=== PATIENT | female | born 1985 | race Caucasian/White ===

== ENCOUNTER 2017-03-29 13:56 | Emergency (ER) | payer OTHER ==
[~2017-03-29] VITALS: Ht 165.1 cm; Wt 64.9 kg
[2017-03-29 14:07] VITALS: BP 157/93
--- NOTE | 2017-03-29 14:27 | PHYS DOC ---
Past History Past Medical History: No Pertinent History Past Surgical History: , Tubal ligation Alcohol Use: None Drug Use: Marijuana Adult General Chief Complaint Chief Complaint: Neck Pain HPI HPI This 32-year-old lady presents with back and upper thoracic pain.. She was seen at [facility] on the as well as a for her pain. That I think she had a CAT scan of the neck that was essentially unremarkable She was placed on Flexeril as well as Naprosyn but continues to have the pain.She has not followed up with anyone but just keeps coming to the emergency departments She denies numbness tingling Review of Systems Review of Systems Constitutional: Denies fever or chills [] Eyes: Denies change in visual acuity, redness, or eye pain [] HENT: Denies nasal congestion or sore throat [] Respiratory: Denies cough or shortness of breath [] Cardiovascular: No additional information not addressed in HPI [] GI: Denies abdominal pain, nausea, vomiting, bloody stools or diarrhea [] : Denies dysuria or hematuria [] Musculoskeletal: Patient is tender to palpation of the paravertebral musculature in the cervical area. Integument: Denies rash or skin lesions [] Neurologic: Denies headache, focal weakness or sensory changes [] Endocrine: Denies polyuria or polydipsia [] Allergies Allergies Allergies Coded Allergies Type Severity Reaction Last Updated Verified No Known Drug Allergies 03/29/17 No Physical Exam Physical Exam Constitutional: Well developed, well nourished, no acute distress, non-toxic appearance. [] HENT: Normocephalic, atraumatic, bilateral external ears normal, oropharynx moist, no oral exudates, nose normal. [] Eyes: PERRLA, EOMI, conjunctiva normal, no discharge. [] Neck: Normal range of motion, no tenderness, supple, no stridor. [] Cardiovascular:Heart rate regular rhythm, no murmur [] Lungs & Thorax: Bilateral breath sounds clear to auscultation [] Abdomen: Bowel sounds normal, soft, no tenderness, no masses, no pulsatile masses. [] Skin: Warm, dry, no erythema, no rash. [] Back: No tenderness, no CVA tenderness. [] Extremities: No tenderness, no cyanosis, no clubbing, ROM intact, no edema. [] Neurologic: Alert and oriented X 3, normal motor function, normal sensory function, no focal deficits noted. [] Psychologic: Affect normal, judgement normal, mood normal. [] Current Patient Data Vital Signs Vital Signs Date Time Temp Pulse Resp B/P (MAP) Pulse Ox O2 Delivery O2 Flow Rate FiO2 03/29/17 14:07 98.3 105 18 99 Room Air EKG EKG [] Radiology/Procedures Radiology/Procedures [] Impressions: Cervical strain cervical pain possible cervical disc disease disease Course & Med Decision Making Course & Med Decision Making Pertinent Labs and Imaging studies reviewed. (See chart for details) was explained to the patient that emergency department at the place for follow-up and that she needed to find a primary care doctor to follow-up with was also explained that the next step would be possibly do an MRI of her neck but I did not feel it was necessary at this time. She was instructed to massage rest and she will be given a small prescription for hydrocodone/APAP [] Dragon Disclaimer Dragon Disclaimer This chart was dictated in whole or in part using Voice Recognition software in a busy, high-work load, and often noisy Emergency Department environment. It may contain unintended and wholly unrecognized errors or omissions. Departure Departure: Referrals: PCP,NO (PCP) SILVINO GEORGE MD March 29, 2017 14:27
[2017-03-29] MEDS ORDERED: HYDR-2758 PO (14:40)
[2017-03-29] MEDS ORDERED: HYDROcodone/APAP 5/325MG 1 TAB TABLET PO ONE (15:00)
== END 2017-03-29 14:54 | disposition home or self-care (01) ==
LOC: ER 13:56
DX: S16.1XXA Strain of muscle, fascia and tendon at neck level, initial encounter (principal); F12.10 Cannabis abuse, uncomplicated; X58.XXXA Exposure to other specified factors, initial encounter; Y93.89 Activity, other specified; Y99.8 Other external cause status; Y92.89 Other specified places as the place of occurrence of the external cause
CPT/HCPCS: 99283

== ENCOUNTER 2017-03-31 17:02 | Emergency (ER) | payer OTHER ==
[~2017-03-31] VITALS: Ht 3 cm; Wt 64.9 kg
[~2017-03-31 17:02] MED LIST: HYDR-2758 PO
--- NOTE | 2017-03-31 17:29 | PHYS DOC ---
Past History Past Medical History: No Pertinent History Past Surgical History: , Tubal ligation Alcohol Use: None Drug Use: None Adult General Chief Complaint Chief Complaint: Neck Pain HPI HPI Patient is a 32 year old female who presents with neck pain that has been present for the past 4-5 days. Patient states she was wrestling the front and injured her left neck and shoulder. Patient was seen at an [facility] where she had a CT scan of the head and neck that was unremarkable. Patient states she was diagnosed with a trapezius muscle tear. Patient was seen at [facility] 2 days ago for the same symptoms. Patient returns today with persistent symptoms of neck pain on the left side and difficulty return her head to the left. Patient describes some burning sensation down her left side of the neck and her left upper shoulder. Patient denies any other injuries. Patient was prescribed narcotic pain medication and muscle relaxers for his symptoms. Patient denies any fevers and has no signs or symptoms of infection. Pertinent exam findings: Positive tender to palpation left cervical paraspinous muscles, radiculopathy reproduced with axial traction is applied to the top of the head with the head turned to the left shoulder ED course: Patient was seen on arrival, since the patient had a CT scan done [address] [facility] we will obtain a UDS, a BMP and treat with Valium and Toradol. 1801: Discussed lab results the patient and recommended she follow up with her PCP for potential MRI of her neck. Pertinent findings: No electrolyte abnormalities MDM: After reviewing the chart, CC/HPI/PMH, physical exam, lab results, I do not believe the patient has a severe bacterial infection like meningitis or to further workup and admission at this time. I believe the patient's neck pain is consistent with her previous diagnosis of a severe muscle strain to her left neck after wrestling 3-4 days ago. There are no red flags on her physical exam findings that would warrant an emergent MRI at this time. The patient is stable for discharge. Patient has pain medication must watch as a home we'll add on steroids. Additional verbal discharge instructions were provided to the patient and that if symptoms get worse or any new symptoms arise that are worrisome to the patient she is to return to the emergency room immediately. Review of Systems Review of Systems Constitutional: Denies fever or chills [] Eyes: Denies change in visual acuity, redness, or eye pain [] HENT: Denies nasal congestion or sore throat [] Respiratory: Denies cough or shortness of breath [] Cardiovascular: No additional information not addressed in HPI [] GI: Denies abdominal pain, nausea, vomiting, bloody stools or diarrhea [] : Denies dysuria or hematuria [] Musculoskeletal: Left neck pain Integument: Denies rash or skin lesions [] Neurologic: Denies headache, focal weakness or sensory changes [] Endocrine: Denies polyuria or polydipsia [] Current Medications Current Medications Current Medications Medications (Trade) Dose Ordered Sig/Royer Start Time Stop Time Status Last Admin Dose Admin Diazepam (Valium) 5 mg 1X ONCE 03/31/17 17:30 03/31/17 17:31 UNV Ketorolac Tromethamine (Toradol) 60 mg 1X ONCE 03/31/17 17:30 03/31/17 17:31 UNV Allergies Allergies Allergies Coded Allergies Type Severity Reaction Last Updated Verified No Known Drug Allergies 03/29/17 No Physical Exam Physical Exam Constitutional: Well developed, well nourished, no acute distress, non-toxic appearance. [] HENT: Normocephalic, atraumatic, bilateral external ears normal, oropharynx moist, no oral exudates, nose normal. [] Eyes: PERRLA, EOMI, conjunctiva normal, no discharge. [] Neck: Decreased range of motion to the left, positive tender to palpation left cervical spine paraspinal muscles Cardiovascular:Heart rate regular rhythm, no murmur [] Lungs & Thorax: Bilateral breath sounds clear to auscultation [] Abdomen: Bowel sounds normal, soft, no tenderness, no masses, no pulsatile masses. [] Skin: Warm, dry, no erythema, no rash. [] Back: No tenderness, no CVA tenderness. [] Extremities: No tenderness, no cyanosis, no clubbing, ROM intact, no edema. [] Neurologic: Alert and oriented X 3, reproducible paresthesias down the left upper 70 with axial load on the head with turning it to the left Psychologic: Affect normal, judgement normal, mood normal. [] Current Patient Data Vital Signs Vital Signs Date Time Temp Pulse Resp B/P (MAP) Pulse Ox O2 Delivery O2 Flow Rate FiO2 03/31/17 17:16 97.9 99 EKG EKG [] Radiology/Procedures Radiology/Procedures [] Course & Med Decision Making Course & Med Decision Making Pertinent Labs and Imaging studies reviewed. (See chart for details) [] Dragon Disclaimer Dragon Disclaimer This chart was dictated in whole or in part using Voice Recognition software in a busy, high-work load, and often noisy Emergency Department environment. It may contain unintended and wholly unrecognized errors or omissions. Departure Departure: Impression: Primary Impression: Neck muscle strain Disposition: HOME, SELF-CARE Condition: IMPROVED Referrals: PCP,NO (PCP) Patient Instructions: Soft Tissue Injury of the Neck, [id number] Scripts Ibuprofen (IBUPROFEN) 800 Mg Tablet 1 TAB PO TID for 10 Days, #30 TAB 1 Refill Prov: MANNY HECTOR DO 03/31/17 Methylprednisolone (MEDROL) 4 Mg Tab.ds.pk 1 PKG PO UD, #1 PKG Prov: MANNY HECTOR DO 03/31/17 Problem Qualifiers Primary Impression: Neck muscle strain Encounter type: initial encounter Qualified Codes: S16.1XXA - Strain of muscle, fascia and tendon at neck level, initial encounter MANNY HECTOR DO March 31, 2017 17:29
[2017-03-31] MEDS ORDERED: KETOROLAC 60 MG/2 ML VIAL. IM ONE (17:45)
[2017-03-31] MEDS ORDERED: diazePAM 5 MG TABLET PO ONE (17:45)
[2017-03-31 17:46] LABS: CALCIUM 9.3 mg/dL (8.5-10.1); CREATININE 0.7 mg/dL (0.6-1.0); GFR 98.3; POTASSIUM 3.4 mmol/L (3.5-5.1)
[2017-03-31] MEDS ORDERED: METH4TAB2 PO (18:16)
[2017-03-31] MEDS ORDERED: IBUP800T19 PO (18:16)
[2017-03-31 18:28] VITALS: BP 145/62
== END 2017-03-31 18:15 | disposition home or self-care (01) ==
LOC: ER 17:02
DX: S16.1XXA Strain of muscle, fascia and tendon at neck level, initial encounter (principal); X58.XXXA Exposure to other specified factors, initial encounter; Y93.89 Activity, other specified; Y92.89 Other specified places as the place of occurrence of the external cause; Y99.8 Other external cause status
CPT/HCPCS: 36415; 80048; 96372; 99283; J1885

== ENCOUNTER 2017-04-01 04:28 | Emergency (ER) | payer OTHER ==
[~2017-04-01] VITALS: Ht 165.1 cm; Wt 64.9 kg
[~2017-04-01 04:28] MED LIST changes: +IBUP800T19 PO; +METH4TAB2 PO
--- NOTE | 2017-04-01 04:38 | ED.ADGEN ---
Past History Past Medical History: No Pertinent History Past Surgical History: , Tubal ligation Alcohol Use: None Drug Use: None Adult General Chief Complaint Chief Complaint Right-sided weakness HPI HPI Patient is a 32 year old female who presents with right sided weakness. She states that 4-5 days ago she was wrestling with her friend in the front yard in the next day she woke up with neck stiffness like she had pulled a muscle. She was able to walk around fine had full sensation was able to mow the yard. She started having left-sided neck pain and was seen by emergency department at [facility] and had a CT scan of her neck was diagnosed with a trapezius tear. She presented yesterday here complaining about pain and numbness in her left side of her neck. She was sent home with Medrol Dosepak and pain meds. She did not get these filled she said she went home to her mom's house at 6 PM last night fell asleep and this morning could not move her right side. She states that the last time she was able to move her right side was when she went to bed at 7 pm. She states she is on no medicines that she didn' t have a chance anything filled. She states that she has some numbness also on her right side but more that she cannot move it. She denies any fevers chills, she denies any other trauma. She did still has her c-collar in place via EMS. She states that she was having some weakness earlier which is now gotten much worse after she got home and fell asleep at her mom's house. Review of Systems Review of Systems Constitutional: Denies fever or chills [] Eyes: Denies change in visual acuity, redness, or eye pain [] HENT: Denies nasal congestion or sore throat [] Respiratory: Denies cough or shortness of breath [] Cardiovascular: No additional information not addressed in HPI [] GI: Denies abdominal pain, nausea, vomiting, bloody stools or diarrhea [] : Denies dysuria or hematuria [] Musculoskeletal: Denies back pain or joint pain [] Integument: Denies rash or skin lesions [] Neurologic: Denies headache, positive for weakness right side and decreased sensation Endocrine: Denies polyuria or polydipsia [] Current Medications Current Medications Current Medications Medications (Trade) Dose Ordered Sig/Royer Start Time Stop Time Status Last Admin Dose Admin Lorazepam (Ativan) 0.5 mg 1X ONCE 04/01/17 09:45 04/01/17 09:46 DC 04/01/17 09:45 0.5 MG Allergies Allergies Allergies Coded Allergies Type Severity Reaction Last Updated Verified No Known Drug Allergies 03/29/17 No Physical Exam Physical Exam Constitutional: Well developed, well nourished, no acute distress, non-toxic appearance. [] HENT: Normocephalic, atraumatic, bilateral external ears normal, oropharynx moist, no oral exudates, nose normal. [] Eyes: PERRLA, EOMI, conjunctiva normal, no discharge. [] Neck: Normal range of motion, no tenderness, supple, no stridor. [] Cardiovascular:Heart rate regular rhythm, no murmur [] Lungs & Thorax: Bilateral breath sounds clear to auscultation [] Abdomen: Bowel sounds normal, soft, no tenderness, no masses, no pulsatile masses. [] Skin: Warm, dry, no erythema, no rash. [] Back: No tenderness, no CVA tenderness. [] Extremities: No tenderness, no cyanosis, no clubbing, ROM intact, no edema. [] Neurologic: Alert and oriented X 3, 1 out of 5 strength in the right upper and lower extremity, she is able to flex and extend fingers, minimal movement of wrist, no movement of elbow on the right upper extremities, right lower extremities able to flex the hip and wiggle toes minimally sensation intact to light touch and sharp objects, cranial nerves II through XII intact Psychologic: Affect normal, judgement normal, mood normal. [] Current Patient Data Vital Signs Vital Signs Date Time Temp Pulse Resp B/P (MAP) Pulse Ox O2 Delivery O2 Flow Rate FiO2 04/01/17 07:13 98.2 04/01/17 07:00 98 24 162/91 (114) 100 Room Air Lab Results Laboratory Tests Test 04/01/17 04:50 04/01/17 05:21 White Blood Count 19.9 x10^3/uL (4.0-11.0) H Red Blood Count 4.77 x10^6/uL (3.50-5.40) Hemoglobin 10.0 g/dL (12.0-15.5) L Hematocrit 31.4 % (36.0-47.0) L Mean Corpuscular Volume 66 fL (79-100) L Mean Corpuscular Hemoglobin 21 pg (25-35) L Mean Corpuscular Hemoglobin Concent 32 g/dL (31-37) Red Cell Distribution Width 17.9 % (11.5-14.5) H Platelet Count 811 x10^3/uL (140-400) H Neutrophils (%) (Auto) 91 % (31-73) H Lymphocytes (%) (Auto) 5 % (24-48) L Monocytes (%) (Auto) 4 % (0-9) Eosinophils (%) (Auto) 0 % (0-3) Basophils (%) (Auto) 0 % (0-3) Neutrophils # (Auto) 18.1 x10^3uL (1.8-7.7) H Lymphocytes # (Auto) 1.0 x10^3/uL (1.0-4.8) Monocytes # (Auto) 0.7 x10^3/uL (0.0-1.1) Eosinophils # (Auto) 0.0 x10^3/uL (0.0-0.7) Basophils # (Auto) 0.1 x10^3/uL (0.0-0.2) Segmented Neutrophils % 92 % (35-66) H Band Neutrophils % 2 % (0-9) Lymphocytes % 2 % (24-48) L Monocytes % 4 % (0-10) Platelet Estimate Increased (ADEQUATE) Hypochromasia Slight Anisocytosis Slight Microcytosis Mod Sodium Level 135 mmol/L (136-145) L Potassium Level 3.7 mmol/L (3.5-5.1) Chloride Level 97 mmol/L (98-107) L Carbon Dioxide Level 26 mmol/L (21-32) Anion Gap 12 (6-14) Blood Urea Nitrogen 24 mg/dL (7-20) H Creatinine 0.6 mg/dL (0.6-1.0) Estimated GFR (Cockcroft-Gault) 117.4 Glucose Level 123 mg/dL (70-99) H Calcium Level 9.2 mg/dL (8.5-10.1) Magnesium Level 2.1 mg/dL (1.8-2.4) Ammonia 11 mcmol/L (11-34) Creatine Kinase 21 U/L (26-192) L Creatine Kinase MB (Mass) < 0.5 ng/mL (0.0-3.6) Creatine Kinase MB Relative Index 2.4 % (0-4) Troponin I Quantitative < 0.017 ng/mL (0-0.055) Salicylates Level 1.6 mg/dL (2.8-20.0) L Salicylate Last Dose Date Unknown Salicylate Last Dose Time Unknown Acetaminophen Level < 2.0 mcg/mL (10-30) L Acetaminophen Last Dose Date 04/01/17 Acetaminophen Last Dose Time 0439 Ethyl Alcohol Level < 10 mg/dL (0-10) Urine Collection Type U cath Urine Color Yellow Urine Clarity Hazy Urine pH 5.5 Urine Specific Mcneil 1.020 Urine Protein Trace (NEG-TRACE) Urine Glucose (UA) Neg mg/dL (NEG) Urine Ketones (Stick) Neg mg/dL (NEG) Urine Blood Neg (NEG) Urine Nitrite Neg (NEG) Urine Bilirubin Neg (NEG) Urine Urobilinogen Dipstick 0.2 mg/dL (0.2 mg/dL) Urine Leukocyte Esterase Neg (NEG) Urine RBC 1-2 /HPF (0-2) Urine WBC 1-4 /HPF (0-4) Urine Squamous Epithelial Cells Mod /LPF Urine Amorphous Sediment Present /HPF Urine Bacteria Few /HPF (0-FEW) Urine Opiates Screen Pos (NEG) Urine Methadone Screen Neg (NEG) Urine Barbiturates Neg (NEG) Urine Phencyclidine Screen Neg (NEG) Urine Amphetamine/Methamphetamine Pos (NEG) Urine Benzodiazepines Screen Pos (NEG) Urine Cocaine Screen Neg (NEG) Urine Cannabinoids Screen Pos (NEG) Urine Ethyl Alcohol Neg (NEG) EKG EKG EKG shows sinus rate of [address] elevations or T-wave inversions, normal axis, QTC 460 ms, as interpreted by me. Radiology/Procedures Radiology/Procedures [address] [address] IMAGING REPORT Signed PATIENT: RODRICK GIVENS ACCOUNT: [id number] : 1985 LOCATION: ER AGE: 32 SEX: F EXAM STATUS: REG ER ORD. PHYSICIAN: MADDIE SOLOMON MD REASON: Right sided weakness, neck pain, headache PROCEDURE: CT HEAD AND CERVICAL SPINE WO CT head without contrast. CT cervical spine without contrast. TECHNIQUE: [address] imaging skull base to vertex. Helical noncontrast CT imaging of the cervical spine. HISTORY: Neck injury with right-sided weakness and numbness and neck pain. Headache. CT head findings: There is a left cerebellar 2.5 cm round hypoattenuating masslike lesion peripheral of which posteriorly is a bandlike hypodensity which could be edema or infarction. There is cerebellar tonsil herniation at the foramen magnum and crowding of the brainstem with effacement of the cerebrospinal fluid. There is mass effect upon the fourth ventricle and cerebral aqueduct by the cerebellar lesion and obstructive hydrocephalus. Small 4 mm density at the right frontal periventricular white matter could be a small focus of calcification or secondarily a shear hemorrhage. Orbits, paranasal sinuses, mastoids and bones are unremarkable. IMPRESSION: 1. Left cerebellar intra-axial round masslike hypodense lesion posterior of which is a bandlike area of vasogenic edema or infarction. There is associated mass effect with cerebellar tonsillar herniation through the foramen magnum against the brainstem. There is also obstructive hydrocephalus due to mass effect upon the fourth ventricle and cerebral aqueduct. 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 The degree of mass effect is not typical of an infarct. 2. Small subcentimeter density at the right frontal periventricular white matter suspected to be a small area of calcification. A traumatic shear hemorrhage would be a secondary consideration. CT cervical spine findings: There is patient motion artifact resulting in misregistration of alignment of the cervical vertebra may decrease the sensitivity to detect subtle fractures. In light of this no fracture is evident. Cervical vertebral body heights intact. There is prominent motion artifact at C7 significantly limiting evaluation for traumatic injury at this level. Lung apices and paraspinal tissues are unremarkable. If there is clinical suspicion of a cervical spine injury follow-up imaging when the patient is able to be motion free would be of benefit. IMPRESSION: Motion degraded exam. No gross abnormality evident. See discussion above. Critical results called to Dr. Solomon at 5:37 AM April 01, 2017 Exposure: One or more of the following individualized dose reduction techniques were utilized for this examination: 1. Automated exposure control 2. Adjustment of the mA and/or kV according to patient size 3. Use of iterative reconstruction technique Electronically signed by: Emma Julien MD (04/01/2017 5:39 AM) DICTATED AND SIGNED BY: EMMA JULIEN MD DATE: 04/01/17 0524 CC: MADDIE SOLOMON MD; PCP,NO ~ Course & Med Decision Making Course & Med Decision Making Pertinent Labs and Imaging studies reviewed. (See chart for details) She was able to stand for a brief moment and catch herself when she was trying to get to the bedside commode. She was complaining of suprapubic discomfort and a straight catheter was performed of which the patient states that she does have sensation and feeling in her genital areas and 900 mL of urine was obtained. CT scan is concerning for cerebellar tonsil herniation. CT scan of the cervical spine had motion artifact. The patient states that she had a CT scan of her head and cervical spine after initial injury 3 days ago and was all normal. At this point I will leave her in the c-collar. I spoke with Ana with neurosurgery on behalf of Dr. Angel who then reviewed the films and Dr. Angel called me directly and wanted the patient to be shipped to . Dr. Angel did not recommend Decadron at this time. I spoke to Dr. Osmin Buckner with neurosurgery via the transfer team, who is accepting the patient. He did not want Decadron at this time. Patient's neuro exam has not changed and still waxes and wanes as noted in the physical exam. I did explain to and the accepting neurosurgeon that her UDS is positive for meth, benzos, opiates, and marijuana. I also updated them on her vitals and her tachycardia. She is in stable condition at this time. Patient and her family has been updated on the plan, diagnosis and reason for transfer. Patient is agreeable to plan of being transferred emergently by EMS to a . Final Impression Final Impression Right-sided weakness Problems: Dragon Disclaimer Dragon Disclaimer This electronic medical record was generated, in whole or in part, using a voice recognition dictation system. MADDIE SOLOMON MD April 01, 2017 04:38
--- NOTE | 2017-04-01 05:09 | EKG ---
[address] [address] Test Date: 2017-04-01 Test Time: 04:56:22 Pat Name: RODRICK GIVENS Department: Room: Gender: F Fiscal Accountant: : 1985 Requested By: MADDIE SOLOMON Order Number: [id number] Reading MD: Renard Winchester Measurements Intervals [place] Rate: 99 P: -78 [place]: 80 QRS: 24 QRSD: 94 T: 30 QT: 360 QTc: 468 Interpretive Statements POSSIBLE ECTOPIC RHYTHM CANNOT RULE OUT LVH WITH LAE Electronically Signed On 04-01-2017 15:35:58 CDT by Renard Winchester
[2017-04-01 05:12] LABS: BASO # 0.1 x10^3/uL (0.0-0.2); BASO % 0 % (0-3); EOS % 0 % (0-3); HEMATOCRIT 31.4 % (36.0-47.0); LYMPH % 5 % (24-48); MEAN CORPUSCULAR HEMOGLOBIN 21 pg (25-35); MEAN CORPUSCULAR HGB CONC 32 g/dL (31-37); MEAN CORPUSCULAR VOLUME 66 fL (79-100); MONO # 0.7 x10^3/uL (0.0-1.1); MONO % 4 % (0-9); NEUT # 18.1 x10^3uL (1.8-7.7); NEUT % 91 % (31-73); PLATELET COUNT 811 x10^3/uL (140-400); RED BLOOD COUNT 4.77 x10^6/uL (3.50-5.40); RED CELL DISTRIBUTION WIDTH 17.9 % (11.5-14.5); WHITE BLOOD COUNT 19.9 x10^3/uL (4.0-11.0)
[2017-04-01 05:22] LABS: CALCIUM 9.2 mg/dL (8.5-10.1); CREATININE 0.6 mg/dL (0.6-1.0); GFR 117.4; MAGNESIUM 2.1 mg/dL (1.8-2.4); POTASSIUM 3.7 mmol/L (3.5-5.1)
[2017-04-01 05:29] LABS: % BANDS 2 % (0-9); % LYMPHS 2 % (24-48); % MONOS 4 % (0-10); % SEGS 92 % (35-66); PLT ESTIMATE INCREASED (ADEQUATE)
[2017-04-01 05:30] LABS: ANISOCYTOSIS SLIGHT; HYPOCHROMIA SLIGHT; MICROCYTOSIS MOD
[2017-04-01 05:33] LABS: ACETAMIN < 2.0 mcg/mL (10-30); CREATINE KINASE 21 U/L (26-192); SALIC 1.6 mg/dL (2.8-20.0)
[2017-04-01 05:34] LABS: ETHANOL < 10 mg/dL (0-10)
--- NOTE | 2017-04-01 05:43 | RAD ---
CT head without contrast. CT cervical spine without contrast. TECHNIQUE: [address] imaging skull base to vertex. Helical noncontrast CT imaging of the cervical spine. HISTORY: Neck injury with right-sided weakness and numbness and neck pain. Headache. CT head findings: There is a left cerebellar 2.5 cm round hypoattenuating masslike lesion peripheral of which posteriorly is a bandlike hypodensity which could be edema or infarction. There is cerebellar tonsil herniation at the foramen magnum and crowding of the brainstem with effacement of the cerebrospinal fluid. There is mass effect upon the fourth ventricle and cerebral aqueduct by the cerebellar lesion and obstructive hydrocephalus. Small 4 mm density at the right frontal periventricular white matter could be a small focus of calcification or secondarily a shear hemorrhage. Orbits, paranasal sinuses, mastoids and bones are unremarkable. IMPRESSION: 1. Left cerebellar intra-axial round masslike hypodense lesion posterior of which is a bandlike area of vasogenic edema or infarction. There is associated mass effect with cerebellar tonsillar herniation through the foramen magnum against the brainstem. There is also obstructive hydrocephalus due to mass effect upon the fourth ventricle and cerebral aqueduct. 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 The degree of mass effect is not typical of an infarct. 2. Small subcentimeter density at the right frontal periventricular white matter suspected to be a small area of calcification. A traumatic shear hemorrhage would be a secondary consideration. CT cervical spine findings: There is patient motion artifact resulting in misregistration of alignment of the cervical vertebra may decrease the sensitivity to detect subtle fractures. In light of this no fracture is evident. Cervical vertebral body heights intact. There is prominent motion artifact at C7 significantly limiting evaluation for traumatic injury at this level. Lung apices and paraspinal tissues are unremarkable. If there is clinical suspicion of a cervical spine injury follow-up imaging when the patient is able to be motion free would be of benefit. IMPRESSION: Motion degraded exam. No gross abnormality evident. See discussion above. Critical results called to Dr. Carrillo at 5:37 AM April 01, 2017 Exposure: One or more of the following individualized dose reduction techniques were utilized for this examination: 1. Automated exposure control 2. Adjustment of the mA and/or kV according to patient size 3. Use of iterative reconstruction technique Electronically signed by: Domenic Julien MD (04/01/2017 5:39 AM)
[2017-04-01] MEDS ORDERED: LORazepam 2 MG/ML VIAL IV ONE ×5 (06:00→09:45)
[2017-04-01 06:16] LABS: BARBITURATES NEG (NEG); BENZODIAZEPINES POS (NEG); CANNABINOIDS POS (NEG); COCAINE NEG (NEG); METHADONE NEG (NEG); OPIATES POS (NEG); PHENCYCLIDINE NEG (NEG)
[2017-04-01 06:22] LABS: AMORPHOUS SEDIMENT,UR PRESENT /HPF; AMPHETAMINE/METHAMPHETAMINE POS (NEG); BACTERIA,URINE FEW /HPF (0-FEW); BILIRUBIN,URINE NEG (NEG); CLARITY,URINE HAZY; COLOR,URINE YELLOW; GLUCOSE,URINE NEG (NEG); NITRITE,URINE NEG (NEG); SQUAMOUS EPITHELIAL CELL,UR MOD /LPF; UROBILINOGEN,URINE 0.2 mg/dL (0.2 mg/dL)
[2017-04-01 12:32] VITALS: BP 141/99
== END 2017-04-01 12:40 | disposition short-term general hospital (02) ==
LOC: ER 04:28
DX: R53.1 Weakness (principal); M43.6 Torticollis
CPT/HCPCS: 36415; 51701; 70450; 72125; 80048; 80305; 80320; 81001; 82140; 82553; 83735; 84484; 85007; 85027; 93005; 96374; 96376; 99285; G6038; J2060; G0480; G0481; 80196

== ENCOUNTER 2020-03-10 17:45 | Emergency (ER) | payer SELFPAY ==
[~2020-03-10] VITALS: Ht 165.1 cm; Wt 70.0 kg
[2020-03-10 17:45] VITALS: BP 144/87
[~2020-03-10 17:45] MED LIST changes: +HYDR-2155 PO; -HYDR-2758 PO
[2020-03-10] MEDS ORDERED: DEXAMETHASONE 4 MG TABLET PO ONE (18:00)
[2020-03-10] MEDS ORDERED: HYDROcodone/APAP 5/325MG 1 TAB TABLET PO ONE (18:00)
[2020-03-10] MEDS ORDERED: HYDR-3165 PO (18:04)
[2020-03-10] MEDS ORDERED: CHLO15MO2 PO (18:04)
[2020-03-10] MEDS ORDERED: AMOX1TAB61 PO (18:04)
--- NOTE | 2020-03-10 18:04 | PHYS DOC ---
Past History Past Medical History: Stroke Additional Past Medical Histor: TBI, Chronic back pain Past Surgical History: , Tubal ligation Additional Past Surgical Histo: surg from stroke, Trach Smoking: Cigarettes Alcohol Use: Occasionally Drug Use: Marijuana General Adult EDM: Chief Complaint: DENTAL PROBLEM HPI: HPI: 35-year-old female presents with 2 day history of lower jaw pain and swelling. Reports known poor dentition. Reports his had her upper teeth extracted. Reports has not yet followed with dentist to have lower teeth also extracted. Reports smoking history. Denies fever or chills. Reports pain more significant despite use with ibuprofen and Tylenol. Denies . Reports history of tubal ligation. Review of Systems: Review of Systems: Constitutional: Denies fever or chills Eyes: Denies redness or eye pain HENT: Denies nasal congestion or sore throat; reports toothache and jaw swelling Respiratory: Denies cough or shortness of breath Cardiovascular: Denies chest pain or palpitations GI: Denies abdominal pain, nausea, or vomiting : Denies dysuria or hematuria Musculoskeletal: Denies back pain or joint pain Integument: Denies rash or skin lesions Neurologic: Denies headache, focal weakness or sensory changes Complete systems were reviewed and found to be within normal limits, except as documented in this note. Allergies: Allergies: Allergies Coded Allergies Type Severity Reaction Last Updated Verified No Known Drug Allergies 03/29/17 No Physical Exam: PE: Constitutional: Well developed, well nourished, uncomfortable, non-toxic appearance HENT: Normocephalic, atraumatic, oropharynx moist, poor dentition throughout, dental bridge to upper eyes are's and canines. Bilateral canines with significant dental caries. Gingivitis noted to lower gums, no drainable abscess appreciated, bilateral submandibular lymphadenopathy noted Eyes: Conjunctiva normal, no discharge Neck: Normal range of motion, no tenderness, supple Lungs & Thorax: No respiratory distress, equal chest rise and fall Skin: Warm, dry, no erythema, no rash Neurologic: Alert and oriented X 3, no focal deficits noted Psychologic: Affect normal, judgment normal Current Patient Data: Vital Signs: Vital Signs Date Time Temp Pulse Resp B/P (MAP) Pulse Ox O2 Delivery O2 Flow Rate FiO2 03/10/20 17:45 97.7 95 18 144/87 (106) 100 Room Air EKG: EKG: [] Radiology/Procedures: Radiology/Procedures: [] Course & Med Decision Making: Course & Med Decision Making Patient with poor dentition presents with dental pain and jaw swelling. No drai nable abscess noted. Patient reports taking Augmentin earlier today from a friend's prior prescription. Afebrile. Patient requesting pain medication. K- TRA report without controlled prescription in last year. [place] given. Symptomatic steroid also provided. Will write prescription for Augmentin for continued use as well as Peridex for gingivitis. Patient stable for discharge with outpatient follow-up with PCP/dentist. Discussed findings and plan with patient, who acknowledges understanding and agreement. Dragon Disclaimer: Emmett Disclaimer: This electronic medical record was generated, in whole or in part, using a voice recognition dictation system. Departure Departure: Impression: Primary Impression: Dentalgia Additional Impressions: Dental caries Gingivitis Disposition: HOME, SELF-CARE Condition: STABLE Referrals: PCP,NO (PCP) Patient Instructions: Dental Caries, Toothache-Brief Additional Instructions: Please follow up closely with your dentist. Scripts Hydrocodone Bit/Acetaminophen (NORCO 5-325 TABLET) 1 Each Tablet 0.5-1 TAB PO Q6HRS PRN for PAIN, #8 TAB Prov: ENRICO PENNY DO 5//20 Chlorhexidine Gluconate (PERIDEX) 15 Ml Mouthwash 15 ML PO BID for Gingivitis, #473 ML 0 Refills Prov: ENRICO PENNY DO 5/3/20 Amoxicillin/Potassium Clav (AUGMENTIN 875-125 TABLET) 1 Each Tablet 1 TAB PO BID for Dental Infection for 7 Days, #14 TAB 0 Refills Prov: ENRICO PENNY DO 5/20 ENRICO PENNY DO March 10, 2020 18:04
== END 2020-03-10 18:10 | disposition home or self-care (01) ==
LOC: ER 17:45
DX: K02.9 Dental caries, unspecified (principal); K05.10 Chronic gingivitis, plaque induced; G89.29 Other chronic pain; F17.210 Nicotine dependence, cigarettes, uncomplicated; Z86.73 Personal history of transient ischemic attack (TIA), and cerebral infarction without residual deficits
CPT/HCPCS: 99283; J8540

== ENCOUNTER 2021-10-03 12:07 | Emergency (ER) | payer SELFPAY ==
[~2021-10-03] VITALS: Ht 165.1 cm; Wt 70.0 kg
[~2021-10-03 12:07] MED LIST changes: +AMOX1TAB61 PO; +CHLO15MO2 PO; +HYDR-3165 PO
[2021-10-03 13:36] VITALS: BP 157/97
[2021-10-03 14:06] LABS: U PREG PATIENT NEGATIVE (NEG)
[2021-10-03 14:17] LABS: CLARITY,URINE CLEAR
[2021-10-03 14:21] LABS: COLOR,URINE ORANGE
[2021-10-03 14:23] LABS: BACTERIA,URINE MANY /HPF (0-FEW); BARBITURATES NEG (NEG); BENZODIAZEPINES NEG (NEG); CANNABINOIDS POS (NEG); COCAINE NEG (NEG); METHADONE NEG (NEG); OPIATES NEG (NEG); PHENCYCLIDINE NEG (NEG); SQUAMOUS EPITHELIAL CELL,UR MOD /LPF; WBC,URINE TNTC /HPF (0-4)
[2021-10-03 14:27] LABS: AMPHETAMINE/METHAMPHETAMINE NEG (NEG)
[2021-10-03 14:38] LABS: BASO # 0.1 x10^3/uL (0.0-0.2); BASO % 1 % (0-3); EOS # 0.1 x10^3/uL (0.0-0.7); EOS % 1 % (0-3); HEMATOCRIT 31.5 % (36.0-47.0); HEMOGLOBIN 9.5 g/dL (12.0-15.5); LYMPH # 1.9 x10^3/uL (1.0-4.8); LYMPH % 13 % (24-48); MEAN CORPUSCULAR HEMOGLOBIN 21 pg (25-35); MEAN CORPUSCULAR HGB CONC 30 g/dL (31-37); MEAN CORPUSCULAR VOLUME 70 fL (79-100); MONO # 0.8 x10^3/uL (0.0-1.1); MONO % 6 % (0-9); NEUT # 11.5 x10^3uL (1.8-7.7); NEUT % 80 % (31-73); PLATELET COUNT 471 x10^3/uL (140-400); RED BLOOD COUNT 4.48 x10^6/uL (3.50-5.40); RED CELL DISTRIBUTION WIDTH 18.7 % (11.5-14.5); WHITE BLOOD COUNT 14.5 x10^3/uL (4.0-11.0)
[2021-10-03 14:42] LABS: CALCIUM 8.4 mg/dL (8.5-10.1); CREATININE 0.6 mg/dL (0.6-1.0); GFR 114.4; POTASSIUM 3.7 mmol/L (3.5-5.1)
--- NOTE | 2021-10-03 14:45 | RAD ---
EXAMINATION: CT abdomen and pelvis without IV contrast. INDICATION:36 years, Female, left flank pain. TECHNIQUE: Axial CT images of the abdomen and pelvis were obtained. Coronal and sagittal reformatted performed. COMPARISON: 08/07/2007. Exposure: One or more of the following individualized dose reduction techniques were utilized for thi s examination: 1. Automated exposure control 2. Adjustment of the mA and/or kV according to patient size 3. Use of iterative reconstruction technique. FINDINGS: LOWER CHEST: Calcified granuloma in the left lung base. ABDOMEN/PELVIS: Within the limitation of noncontrast exam, Prominent left pelvicalyceal system secondary to 3 mm obstructing calculus at the ureteropelvic junct ion. Diffusely thickened renal pelvic urothelia. There are 2 left and single right punctate nonobstru cting calculi measures up to 2 mm. Unremarkable urinary bladder. Liver, spleen, gallbladder, biliary ducts, pancreas and adrenal glands are unremarkable. No bowel obs truction. Moderate amount of stool throughout the colon. Normal appendix. Normal caliber abdominal ao rta. No abdominopelvic lymphadenopathy by size criteria. No pneumoperitoneum or ascites. Unremarkable uterus. No suspicious pelvic masses. MUSCULOSKELETAL STRUCTURES: Minimal retrolisthesis of L5 over S1. Mild degenerative changes in lumbar spine. No acute osseous pro cess. IMPRESSION: 1. Prominent left pelvicalyceal system secondary to 3 mm obstructing calculus at the ureteropelvic j unction. 2. Thickened left renal pelvic urothelia. Correlate for urinary tract infection. 3. Punctate nonobstructing bilateral nephrolithiasis. Electronically signed by: Charles Taylor MD (10/03/2021 2:43 PM) [facility]
[2021-10-03 14:51] LABS: PLT ESTIMATE INCREASED (ADEQUATE)
[2021-10-03 14:52] LABS: HYPOCHROMIA MARKED
[2021-10-03 14:53] LABS: ROULEAUX PRESENT; TARGET CELLS FEW
[2021-10-03 14:54] LABS: MICROCYTOSIS SLIGHT
[2021-10-03] MEDS ORDERED: HYDROcodone/APAP 5/325MG 1 TAB TABLET ONE (15:16)
[2021-10-03] MEDS ORDERED: CIPROFLOXACIN HCL 500 MG TABLET PO ONE (15:30)
--- NOTE | 2021-10-03 15:49 | PHYS DOC ---
Past History Past Medical History: Stroke Additional Past Medical Histor: TBI, Chronic back pain (KYRIE WALTERS APRN) Past Surgical History: , Tubal ligation, Other Additional Past Surgical Histo: surg from stroke, Trach (KYRIE WALTERS APRN) Smoking: Cigarettes Alcohol Use: None Drug Use: Marijuana (KYRIE WALTERS APRN) General Adult EDM: Chief Complaint: FLANK PAIN HPI: HPI: Patient is a 36-year-old female who presents to the emergency department for left flank pain that started yesterday. Patient states that she has a history of kidney stones. She rates her pain 7 out of 10. She denies nausea, vomiting, diarrhea, fevers, dysuria, hematuria. (KYRIE WALTERS APRN) Review of Systems: Review of Systems: Constitutional: See HPI GI: See HPI : See HPI Musculoskeletal: See HPI (KYRIE WALTERS APRN) Current Medications: Current Meds: Current Medications Medications (Trade) Dose Ordered Sig/Royer Start Time Stop Time Status Last Admin Dose Admin Acetaminophen/ Hydrocodone Bitart (Lortab 5/325) 1 tab STK-MED ONCE 10/03/21 15:16 10/03/21 15:16 DC Ciprofloxacin (Cipro) 500 mg 1X ONCE 10/03/21 15:30 10/03/21 15:31 UNV (KYRIE WALTERS APRN) Allergies: Allergies: Allergies Coded Allergies Type Severity Reaction Last Updated Verified vancomycin Allergy Unknown 10/03/21 Yes (KYRIE WALTERS APRN) Physical Exam: PE: Constitutional: Well developed, well nourished, no acute distress, non-toxic appearance. [] HENT: Normocephalic, atraumatic, bilateral external ears normal, oropharynx moist, no oral exudates, nose normal. [] Eyes: PERRL, EOMI, conjunctiva normal, no discharge. [] Neck: Normal range of motion, no stridor Cardiovascular:Heart rate regular rhythm, no murmur [] Lungs & Thorax: Bilateral breath sounds clear to auscultation [] Abdomen: Bowel sounds normal, soft, no tenderness, no masses, no pulsatile masses. [] Skin: Warm, dry, no erythema, no rash. [] Back: No tenderness, left-sided CVA tenderness Extremities: No tenderness, no cyanosis, no clubbing, ROM intact, no edema. [] Neurologic: Alert and oriented X 3, normal motor function, normal sensory function, no focal deficits noted. [] Psychologic: Affect normal, judgement normal, mood normal. [] (KYRIE WALTERS APRN) Current Patient Data: Labs: Laboratory Tests Test 10/03/21 13:30 10/03/21 14:22 Urine Collection Type Clean catch Urine Color [place] Urine Clarity Clear Urine pH Urine Specific [place] Urine Protein Urine Glucose (UA) mg/dL Urine Ketones (Stick) mg/dL Urine Blood Urine Nitrite Urine Bilirubin Urine Urobilinogen Dipstick mg/dL Urine Leukocyte Esterase Urine RBC 11-20 /HPF Urine WBC Tntc /HPF Urine Squamous Epithelial Cells Mod /LPF Urine Bacteria Many /HPF Urine Test Negative Urine Opiates Screen Neg Urine Methadone Screen Neg Urine Barbiturates Neg Urine Phencyclidine Screen Neg Urine Amphetamine/Methamphetamine Neg Urine Benzodiazepines Screen Neg Urine Cocaine Screen Neg Urine Cannabinoids Screen Pos Urine Ethyl Alcohol Neg White Blood Count 14.5 x10^3/uL Red Blood Count 4.48 x10^6/uL Hemoglobin 9.5 g/dL Hematocrit 31.5 % Mean Corpuscular Volume 70 fL Mean Corpuscular Hemoglobin 21 pg Mean Corpuscular Hemoglobin Concent 30 g/dL Red Cell Distribution Width 18.7 % Platelet Count 471 x10^3/uL Neutrophils (%) (Auto) 80 % Lymphocytes (%) (Auto) 13 % Monocytes (%) (Auto) 6 % Eosinophils (%) (Auto) 1 % Basophils (%) (Auto) 1 % Neutrophils # (Auto) 11.5 x10^3uL Lymphocytes # (Auto) 1.9 x10^3/uL Monocytes # (Auto) 0.8 x10^3/uL Eosinophils # (Auto) 0.1 x10^3/uL Basophils # (Auto) 0.1 x10^3/uL Platelet Estimate Increased Hypochromasia Marked Microcytosis Slight Target Cells Few Rouleau Present Sodium Level 139 mmol/L Potassium Level 3.7 mmol/L Chloride Level 105 mmol/L Carbon Dioxide Level 24 mmol/L Anion Gap 10 Blood Urea Nitrogen 10 mg/dL Creatinine 0.6 mg/dL Estimated GFR (Cockcroft-Gault) 114.4 Glucose Level 131 mg/dL Calcium Level 8.4 mg/dL Current Medications Medications (Trade) Dose Ordered Sig/Royer Route PRN Reason Start Time Stop Time Status Last Admin Dose Admin Acetaminophen/ Hydrocodone Bitart (Lortab 5/325) 1 tab STK-MED ONCE .ROUTE 10/03/21 15:16 10/03/21 15:16 DC Ciprofloxacin (Cipro) 500 mg 1X ONCE PO 10/03/21 15:30 10/03/21 15:44 DC Laboratory Tests Test 10/03/21 13:30 10/03/21 14:22 Urine Collection Type Clean catch Urine Color [place] Urine Clarity Clear Urine pH Urine Specific [place] Urine Protein (NEG-TRACE) Urine Glucose (UA) mg/dL (NEG) Urine Ketones (Stick) mg/dL (NEG) Urine Blood (NEG) Urine Nitrite (NEG) Urine Bilirubin (NEG) Urine Urobilinogen Dipstick mg/dL (0.2 mg/dL) Urine Leukocyte Esterase (NEG) Urine RBC 11-20 /HPF (0-2) Urine WBC Tntc /HPF (0-4) Urine Squamous Epithelial Cells Mod /LPF Urine Bacteria Many /HPF (0-FEW) Urine Test Negative (NEG) Urine Opiates Screen Neg (NEG) Urine Methadone Screen Neg (NEG) Urine Barbiturates Neg (NEG) Urine Phencyclidine Screen Neg (NEG) Urine Amphetamine/Methamphetamine Neg (NEG) Urine Benzodiazepines Screen Neg (NEG) Urine Cocaine Screen Neg (NEG) Urine Cannabinoids Screen Pos (NEG) Urine Ethyl Alcohol Neg (NEG) White Blood Count 14.5 x10^3/uL (4.0-11.0) H Red Blood Count 4.48 x10^6/uL (3.50-5.40) Hemoglobin 9.5 g/dL (12.0-15.5) L Hematocrit 31.5 % (36.0-47.0) L Mean Corpuscular Volume 70 fL (79-100) L Mean Corpuscular Hemoglobin 21 pg (25-35) L Mean Corpuscular Hemoglobin Concent 30 g/dL (31-37) L Red Cell Distribution Width 18.7 % (11.5-14.5) H Platelet Count 471 x10^3/uL (140-400) H Neutrophils (%) (Auto) 80 % (31-73) H Lymphocytes (%) (Auto) 13 % (24-48) L Monocytes (%) (Auto) 6 % (0-9) Eosinophils (%) (Auto) 1 % (0-3) Basophils (%) (Auto) 1 % (0-3) Neutrophils # (Auto) 11.5 x10^3uL (1.8-7.7) H Lymphocytes # (Auto) 1.9 x10^3/uL (1.0-4.8) Monocytes # (Auto) 0.8 x10^3/uL (0.0-1.1) Eosinophils # (Auto) 0.1 x10^3/uL (0.0-0.7) Basophils # (Auto) 0.1 x10^3/uL (0.0-0.2) Platelet Estimate Increased (ADEQUATE) Hypochromasia Marked Microcytosis Slight Target Cells Few Rouleaux Present Sodium Level 139 mmol/L (136-145) Potassium Level 3.7 mmol/L (3.5-5.1) Chloride Level 105 mmol/L (98-107) Carbon Dioxide Level 24 mmol/L (21-32) Anion Gap 10 (6-14) Blood Urea Nitrogen 10 mg/dL (7-20) Creatinine 0.6 mg/dL (0.6-1.0) Estimated GFR (Cockcroft-Gault) 114.4 Glucose Level 131 mg/dL (70-99) H Calcium Level 8.4 mg/dL (8.5-10.1) L Vital Signs: Vital Signs Date Time Temp Pulse Resp B/P (MAP) Pulse Ox O2 Delivery O2 Flow Rate FiO2 10/03/21 13:36 98.5 96 18 157/97 (117) 92 (KYRIE WALTERS APRN) EKG: EKG: [] (KYRIE WALTERS APRN) Radiology/Procedures: Radiology/Procedures: []PROCEDURE: CT ABDOMEN PELVIS WO CONTRAST EXAMINATION: CT abdomen and pelvis without IV contrast. INDICATION:36 years, Female, left flank pain. TECHNIQUE: Axial CT images of the abdomen and pelvis were obtained. Coronal and sagittal reformatted performed. COMPARISON: 08/07/2007. Exposure: One or more of the following individualized dose reduction techniques were utilized for this examination: 1. Automated exposure control 2. Adjustment of the mA and/or kV according to patient size 3. Use of iterative reconstruction technique. FINDINGS: LOWER CHEST: Calcified granuloma in the left lung base. ABDOMEN/PELVIS: Within the limitation of noncontrast exam, Prominent left pelvicalyceal system secondary to 3 mm obstructing calculus at the ureteropelvic junction. Diffusely thickened renal pelvic urothelia. There are 2 left and single right punctate nonobstructing calculi measures up to 2 mm. Unremarkable urinary bladder. Liver, spleen, gallbladder, biliary ducts, pancreas and adrenal glands are unremarkable. No bowel obstruction. Moderate amount of stool throughout the colon. Normal appendix. Normal caliber abdominal aorta. No abdominopelvic lymphadenopathy by size criteria. No pneumoperitoneum or ascites. Unremarkable uterus. No suspicious pelvic masses. MUSCULOSKELETAL STRUCTURES: Minimal retrolisthesis of L5 over S1. Mild degenerative changes in lumbar spine. No acute osseous process. IMPRESSION: 1. Prominent left pelvicalyceal system secondary to 3 mm obstructing calculus at the ureteropelvic junction. 2. Thickened left renal pelvic urothelia. Correlate for urinary tract infection. 3. Punctate nonobstructing bilateral nephrolithiasis. Electronically signed by: Erica Taylor MD (10/03/2021 2:43 PM) [facility] DICTATED AND SIGNED BY: ERICA TAYLOR MD DATE: 10/03/21 1434 CC: KYRIE WALTERS APRN; PCP,NO ~MTH0 0 (KYRIE WALTERS APRN) Heart Score: C/O Chest Pain: N/A Risk Factors: Risk Factors: DM, Current or recent (<one month) smoker, HTN, HLP, family history of CAD, obesity. Risk Scores: Score 0 - 3: 2.5% MACE over next 6 weeks - Discharge Home Score 4 - 6: 20.3% MACE over next 6 weeks - Admit for Clinical Observation Score 7 - 10: 72.7% MACE over next 6 weeks - Early Invasive Strategies (KYRIE WALTERS APRN) Course & Med Decision Making: Course & Med Decision Making Pertinent Labs and Imaging studies reviewed. (See chart for details) * [] Patient presents to the emergency department for left-sided flank pain. Urinalysis did show too numerous to count white blood cells and many bacteria but unable to determine the rest of the findings due to the color of the urine, patient was noted to have leukocytosis with a white blood cell count of 14.5. CT of abdomen shows a prominent left pelvicalyceal and a 3 mm obstructing stone at the left UPJ. I discussed these findings with patient and the need to transfer patient to a facility that has urology coverage. Patient vital signs are stable and she is in no acute distress. She is requesting to be transferred by private vehicle to that facility. Patient treated with pain medication and an antibiotic in the ER. I discussed these findings with Dr. Wallace at [facility] and she agreed to admit the patient under her services. Patient updated on plan of care and is agreeable at this time. Patient advised to stay NPO. (KYRIE WALTERS APRN) Dragon Disclaimer: Dragon Disclaimer: This electronic medical record was generated, in whole or in part, using a voice recognition dictation system. (KYRIE WALTERS APRN) Attending Co-Sign The patient was seen and interviewed as well as examined at the bedside. The chart was reviewed. The case was discussed. Agree with the plan of care. (MARINA ALFORD DO) Departure Departure: Impression: Primary Impression: Kidney stone Additional Impression: Urinary tract infection Qualified Codes: N30.01 - Acute cystitis with hematuria Disposition: 02 SHORT TERM HOSPITAL Condition: STABLE Referrals: PCP,NO (PCP) KYRIE WALTERS APRN Oct 03, 2021 15:49 MARINA ALFORD DO Oct 06, 2021 10:46
== END 2021-10-03 16:08 | disposition short-term general hospital (02) ==
LOC: ER 12:07
DX: N20.0 Calculus of kidney (principal); N30.01 Acute cystitis with hematuria; F17.210 Nicotine dependence, cigarettes, uncomplicated; G89.29 Other chronic pain; Z20.822 Contact with and (suspected) exposure to COVID-19; Z87.820 Personal history of traumatic brain injury; Z98.890 Other specified postprocedural states; Z98.51 Tubal ligation status; Z88.1 Allergy status to other antibiotic agents
CPT/HCPCS: 36415; 74176; 80048; 80307; 81001; 81025; 85007; 85025; 87086; 87426; 99285; C9803; U0003; 87077; 87186